=== PATIENT | female | born 2000 | race Caucasian/White ===

== ENCOUNTER 2022-01-16 18:53 | Emergency (ER) | payer OTHER, SELFPAY ==
[2022-01-16 19:40] VITALS: BP 121/48; PULSE 79; RESP 18; O2SAT 100; BMI 25.7
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
[2022-01-16 22:22] VITALS: BP 124/56; PULSE 64; RESP 18; TEMP 36.8; O2SAT 98
== END 2022-01-16 22:23 | disposition home or self-care (01) ==
LOC: HO.ED 22:10
PROVIDERS: Emergency Provider Emergency Medicine
DX: S06.0X0A Concussion without loss of consciousness, initial encounter (principal); V43.52XA Car driver injured in collision with other type car in traffic accident, initial encounter; Y93.89 Activity, other specified; Y92.488 Other paved roadways as the place of occurrence of the external cause; Y99.9 Unspecified external cause status
CPT/HCPCS: 99282; 99284